=== PATIENT | female | born 1990 | race Caucasian/White ===

== ENCOUNTER 2016-08-21 20:14 | Emergency (ER) | payer MEDICAID ==
[2016-08-21 21:13] VITALS: BP 117/53
[2016-08-21] MEDS ORDERED: Sodium Chloride 0.9% 1,000 ML IV SCH ×2 (21:15→23:15)
--- NOTE | 2016-08-21 21:16 | EDM.PDOC ---
ED HPI GI/ABDOMINAL - General Chief Complaint: Abdominal Pain Stated Complaint: SEVERE ABD PAIN Time Seen by Provider: 08/21/16 21:13 Source: Reports: Patient History Limitations: Reports: No limitations - History of Present Illness INITIAL COMMENTS - FREE TEXT/NARRATIVE: pt arrived with pain in the rt lower abdoman. This started higher in the abdoman about 2 thirty. Timing/Duration: Reports: Hour(s):, Other ( This is lower at this time and is slightly less severe. ) Location: RLQ Associated Symptoms (-Female): Reports: nausea/vomiting, other (pt had a bm earlier today that was normal. She did not have diarrhea. She did vomit twice at home . She admits to drinking at least 5-6 drinks daily. ) - Related Data Allergies/ADRs: Allergies Allergy/AdvReac Type Severity Reaction Status Date / Time No Known Allergies Allergy Verified 08/21/16 21:10 Home Meds: Home Meds NK [No Known Home Meds] 08/21/16 [History] ED ROS GENERAL - Review of Systems Review Of Systems: See Below Constitutional: Reports: fever, chills, decreased appetite HEENT: Reports: No symptoms Respiratory: Reports: no symptoms Cardiovascular: Reports: No symptoms Endocrine: Reports: no symptoms GI/Abdominal: Reports: Abdominal pain, Other (Pain started higher and now is low in the abdoman. She did vomit twice. ) : Reports: no symptoms Musculoskeletal: Reports: no symptoms Skin: Reports: no symptoms ED EXAM, GI/ABD - Physical Exam Exam: See Below Text/Narrative:: At two thirty this afternoon she developed pain in the upper abdoman . This was more on the rt and it has now moved down to the lower abdoman. Exam Limited By: No limitations General Appearance: alert, anxious, other (PT GIVES A HISTORY OF DRINKING ETOH ABOUT 6 DRINKS DAILY. ) Ears: normal TMs Nose: normal inspection Throat/Mouth: Normal inspection Head: atraumatic Neck: normal inspection Respiratory/Chest: no respiratory distress Cardiovascular: regular rate, rhythm, irregularly irregular GI/Abdominal: tenderness, other (PT HAS SLIGHT UPPER ABDOMANAL PAIN IN THE EPIGASTRIC AREA. sHE STATES MOST OF THE PAIN HAS MOVED TO THE RT LOWER ABDOMAN. ) Rectal (Female) Exam: Deferred Back Exam: normal inspection Extremities: normal inspection Neurological: alert, oriented, normal cognition Psychiatric: normal affect Course - Vital Signs Last Recorded V/S: Last Vital Signs Temp 37.0 C 08/21/16 21:06 Pulse 90 08/21/16 21:06 Resp 16 08/21/16 21:06 BP 117/53 L 08/21/16 21:06 Pulse Ox 98 08/21/16 21:06 - Orders/Labs/Meds Orders: Active Orders 24 hr Category Date Time Status Abdomen Pelvis w Cont [CT] Stat Exams 08/21/16 22:23 Taken CULTURE URINE [RM] Stat Lab 08/21/16 22:15 Received Saline Lock Insert [OM.PC] Routine Oth 08/21/16 21:12 Ordered Labs: Laboratory Tests 08/21/16 08/21/16 08/21/16 Range/Units 21:24 21:24 21:48 WBC 10.1 (4.5-11.0) K/uL RBC 4.31 (3.30-5.50) M/uL Hgb 15.3 H (12.0-15.0) g/dL Hct 43.6 (36.0-48.0) % MCV 101 H (80-98) fL MCH 36 H (27-31) pg MCHC 35 (32-36) % Plt Count 232 (150-400) K/uL Neut % (Auto) 80 H (36-66) % Lymph % (Auto) 13 L (24-44) % Jenkins % (Auto) 7 H (2-6) % Eos % (Auto) 0 L (2-4) % Baso % (Auto) 0 (0-1) % Sodium 139 L (140-148) mmol/L Potassium 4.3 (3.6-5.2) mmol/L Chloride 101 (100-108) mmol/L Carbon Dioxide 27 (21-32) mmol/L Anion Gap 15.3 H (5.0-14.0) mmol/L BUN 11 (7-18) mg/dL Creatinine 0.7 (0.6-1.0) mg/dL Est Cr Clr Drug Dosing 97.17 mL/min Estimated GFR (MDRD) > 60 (>60) Glucose 94 (74-106) mg/dL Calcium 9.4 (8.5-10.1) mg/dL Total Bilirubin 0.7 (0.2-1.0) mg/dL AST 88 H (15-37) U/L ALT 79 H (12-78) U/L Alkaline Phosphatase 60 (46-116) U/L C-Reactive Protein 0.08 (0.0-0.3) mg/dL Total Protein 8.1 (6.4-8.2) g/dL Albumin 4.4 (3.4-5.0) g/dL Globulin 3.7 H (2.3-3.5) g/dL Albumin/Globulin Ratio 1.2 (1.2-2.2) Amylase (25-115) U/L Lipase (73-393) U/L Urine Color Urine Appearance Urine pH (4.5-8.0) Ur Specific [place] (1.008-1.030) Urine Protein (NEGATIVE) mg/dL Urine Glucose (UA) (NEGATIVE) mg/dL Urine Ketones (NEGATIVE) mg/dL Urine Occult Blood (NEGATIVE) Urine Nitrite (NEGATIVE) Urine Bilirubin (NEGATIVE) Urine Urobilinogen (NORMAL) mg/dL Ur Leukocyte Esterase (NEGATIVE) Urine RBC (0-5) Urine WBC (0-5) Ur Epithelial Cells Amorphous Sediment Urine Bacteria Urine Mucus Urine HCG, Qual Ethyl Alcohol mg/dL 08/21/16 08/21/16 08/21/16 Range/Units 21:48 22:05 22:14 WBC (4.5-11.0) K/uL RBC (3.30-5.50) M/uL Hgb (12.0-15.0) g/dL Hct (36.0-48.0) % MCV (80-98) fL MCH (27-31) pg MCHC (32-36) % Plt Count (150-400) K/uL Neut % (Auto) (36-66) % Lymph % (Auto) (24-44) % Jenkins % (Auto) (2-6) % Eos % (Auto) (2-4) % Baso % (Auto) (0-1) % Sodium (140-148) mmol/L Potassium (3.6-5.2) mmol/L Chloride (100-108) mmol/L Carbon Dioxide (21-32) mmol/L Anion Gap (5.0-14.0) mmol/L BUN (7-18) mg/dL Creatinine (0.6-1.0) mg/dL Est Cr Clr Drug Dosing mL/min Estimated GFR (MDRD) (>60) Glucose (74-106) mg/dL Calcium (8.5-10.1) mg/dL Total Bilirubin (0.2-1.0) mg/dL AST (15-37) U/L ALT (12-78) U/L Alkaline Phosphatase (46-116) U/L C-Reactive Protein (0.0-0.3) mg/dL Total Protein (6.4-8.2) g/dL Albumin (3.4-5.0) g/dL Globulin (2.3-3.5) g/dL Albumin/Globulin Ratio (1.2-2.2) Amylase (25-115) U/L Lipase 474 H (73-393) U/L Urine Color Yellow Urine Appearance Cloudy Urine pH 5.0 (4.5-8.0) Ur Specific [place] 1.020 (1.008-1.030) Urine Protein Negative (NEGATIVE) mg/dL Urine Glucose (UA) Normal (NEGATIVE) mg/dL Urine Ketones 50 H (NEGATIVE) mg/dL Urine Occult Blood Moderate (NEGATIVE) Urine Nitrite Negative (NEGATIVE) Urine Bilirubin Negative (NEGATIVE) Urine Urobilinogen Normal (NORMAL) mg/dL Ur Leukocyte Esterase Negative (NEGATIVE) Urine RBC 5-10 H (0-5) Urine WBC 0-5 (0-5) Ur Epithelial Cells Moderate Amorphous Sediment Not seen Urine Bacteria Many Urine Mucus Few Urine HCG, Qual Ethyl Alcohol < 3 mg/dL 08/21/16 08/21/16 Range/Units 22:14 23:37 WBC (4.5-11.0) K/uL RBC (3.30-5.50) M/uL Hgb (12.0-15.0) g/dL Hct (36.0-48.0) % MCV (80-98) fL MCH (27-31) pg MCHC (32-36) % Plt Count (150-400) K/uL Neut % (Auto) (36-66) % Lymph % (Auto) (24-44) % Jenkins % (Auto) (2-6) % Eos % (Auto) (2-4) % Baso % (Auto) (0-1) % Sodium (140-148) mmol/L Potassium (3.6-5.2) mmol/L Chloride (100-108) mmol/L Carbon Dioxide (21-32) mmol/L Anion Gap (5.0-14.0) mmol/L BUN (7-18) mg/dL Creatinine (0.6-1.0) mg/dL Est Cr Clr Drug Dosing mL/min Estimated GFR (MDRD) (>60) Glucose (74-106) mg/dL Calcium (8.5-10.1) mg/dL Total Bilirubin (0.2-1.0) mg/dL AST (15-37) U/L ALT (12-78) U/L Alkaline Phosphatase (46-116) U/L C-Reactive Protein (0.0-0.3) mg/dL Total Protein (6.4-8.2) g/dL Albumin (3.4-5.0) g/dL Globulin (2.3-3.5) g/dL Albumin/Globulin Ratio (1.2-2.2) Amylase 65 (25-115) U/L Lipase (73-393) U/L Urine Color Urine Appearance Urine pH (4.5-8.0) Ur Specific [place] (1.008-1.030) Urine Protein (NEGATIVE) mg/dL Urine Glucose (UA) (NEGATIVE) mg/dL Urine Ketones (NEGATIVE) mg/dL Urine Occult Blood (NEGATIVE) Urine Nitrite (NEGATIVE) Urine Bilirubin (NEGATIVE) Urine Urobilinogen (NORMAL) mg/dL Ur Leukocyte Esterase (NEGATIVE) Urine RBC (0-5) Urine WBC (0-5) Ur Epithelial Cells Amorphous Sediment Urine Bacteria Urine Mucus Urine HCG, Qual Negative Ethyl Alcohol mg/dL Meds: Medications Discontinued Medications Generic Name Dose Route Start Last Admin Trade Name Freq PRN Reason Stop Dose Admin Sodium Chloride 1,000 mls @ 999 mls/hr 08/21/16 21:15 08/21/16 21:48 Normal Saline IV 999 mls/hr ASDIRECTED GIGI Administration Sodium Chloride 70 mls @ 3 mls/sec 08/21/16 22:45 08/21/16 22:51 Normal Saline IV 3 mls/sec ASDIRECTED GIGI Administration Sodium Chloride 1,000 mls @ 999 mls/hr 08/21/16 23:15 08/21/16 23:40 Normal Saline IV 999 mls/hr ASDIRECTED GIGI Administration Sodium Chloride 1,000 mls @ 999 mls/hr 08/22/16 00:30 08/22/16 00:45 Normal Saline IV 999 mls/hr ASDIRECTED GIGI Administration Iopamidol 100 ml 08/21/16 22:45 08/21/16 22:51 Isovue-300 (61%) IV 96 ml . DIRECTED GIGI Administration Ketorolac Tromethamine 30 mg 08/21/16 22:48 08/21/16 23:41 Toradol IVPUSH 08/21/16 22:49 30 mg ONETIME ONE Administration Ondansetron HCl 4 mg 08/22/16 00:21 08/22/16 01:45 Zofran IVPUSH 08/22/16 00:22 Not Given ONETIME ONE Sodium Chloride 10 ml 08/21/16 21:12 08/21/16 22:51 Saline Flush FLUSH 10 ml ASDIRECTED PRN Administration Keep Vein Open Sodium Chloride 10 ml 08/21/16 22:34 08/21/16 23:47 Saline Flush FLUSH 08/21/16 22:35 10 ml ONETIME ONE Administration - Re-Assessments/Exams Free Text/Narrative Re-Assessment/Exam: 08/21/16 22:47 PT IS HAVING SOME CVA PAIN IN THE RT CVA AREA. sHE IS RATING HER PAIN A 6-7. sHE WAS GIVEN TORODOL 30MG IV. 08/21/16 22:48 Pt had a reoccurence of pain while she was here and at this time the pain was high and it went to her back. 08/21/16 23:34 pt does have some rbcs in her urine but does not have her period. She has a normal wbc. She has a mild elevation in her lipase. She had a cat scan of the abdoman which showed some edema ,Her appendix was neg. 08/22/16 00:22 Pt refused to be admited. She stated she could not afford to stay. She has been given 3 liters of fluid. She is more comfortable since she had the torodol. She was advised that this just started and she could become quite ill with this and she needed to come back and be admitted if she was getting sicker. 08/22/16 18:27 Departure - Departure Time of Disposition: 21:10 Disposition: Home, Self-Care 01 Condition: fair Clinical Impression: Acute pancreatitis Instructions: Acute Pancreatitis, [id number] Referrals: PCP,None [Primary Care Provider] - Forms: ED Department Discharge Care Plan Goals: push fluids, avoid solid food, percocet # 6 q6h prn for pain, zoforan 4mg subling q6h as needed for pain, pt refused admission-- rtc if she is getting more ill, appt with regular Dr in 2-3 days. stop drinking= etoh rtc for us on gb. - My Orders Last 24 Hours: My Active Orders 08/21/16 21:12 Saline Lock Insert [OM.PC] Routine 08/21/16 22:15 CULTURE URINE [RM] Stat 08/21/16 22:23 Abdomen Pelvis w Cont [CT] Stat - Assessment/Plan Last 24 Hours: My Active Orders 08/21/16 21:12 Saline Lock Insert [OM.PC] Routine 08/21/16 22:15 CULTURE URINE [RM] Stat 08/21/16 22:23 Abdomen Pelvis w Cont [CT] Stat
[2016-08-21] MEDS: Sodium Chloride 0.9% 10 ML Syringe FLUSH PRN ×2 (21:48→22:51)
[2016-08-21] MEDS ORDERED: Sodium Chloride 0.9% 10 ML Syringe FLUSH ONE (22:34)
[2016-08-21] MEDS ORDERED: Iopamidol 612 MG/ML 100 ML Bottle IV SCH (22:45)
[2016-08-21] MEDS ORDERED: Ketorolac 30 MG/ML SDV IVPUSH ONE (22:48)
[2016-08-22] MEDS ORDERED: Ondansetron 4 MG/2 ML SDV IVPUSH ONE (00:21)
[2016-08-22] MEDS ORDERED: Sodium Chloride 0.9% 1,000 ML IV SCH (00:30)
--- NOTE | 2016-08-22 09:58 | CR ---
Heart size within normal limits. No focal consolidation. No pneumothorax. Moderate fecal residual. N onobstructive bowel gas pattern.
== END 2016-08-22 01:50 | disposition home or self-care (01) ==
LOC: JP.ED 20:14
DX: K85.90 Acute pancreatitis without necrosis or infection, unspecified (principal); F10.10 Alcohol abuse, uncomplicated
CPT/HCPCS: 36415; 74022; 74177; 80053; 81001; 81025; 82150; 83690; 85025; 86140; 87086; G0480; J1885; J7030; J7040; J7050; Q9967; 96361; 96374; 99284; 99285-25